=== PATIENT | female | born 2000 | race Two or more races ===

== ENCOUNTER → 2021-11-09 | Emergency (ER) | payer OTHER ==
[~2021-11-09] VITALS: Ht 170.2 cm; Wt 100.7 kg
== END | disposition home or self-care (01) ==
LOC: EMR PED 18:48 → ER 18:48 → EMR PED 19:24
DX: M94.0 Chondrocostal junction syndrome [Tietze] (principal); Z20.822 Contact with and (suspected) exposure to COVID-19; Z88.6 Allergy status to analgesic agent

== ENCOUNTER 2023-05-15 16:10 | Emergency (ER) | payer OTHER ==
[~2023-05-15] VITALS: Ht 170.2 cm; Wt 88.0 kg
== END 2023-05-15 21:50 | disposition home or self-care (01) ==
LOC: ER 16:10
DX: H66.90 Otitis media, unspecified, unspecified ear (principal); Z88.6 Allergy status to analgesic agent